=== PATIENT | male | born 1990 | race Caucasian/White ===

== ENCOUNTER 2025-06-18 12:57 | Emergency (ER) | payer OTHER, SELFPAY ==
[2025-06-18 12:59] VITALS: BP 141/105
[2025-06-18 14:19] VITALS: BMI 27.1
[2025-06-18 14:26] VITALS: BP 145/105
[2025-06-18 14:40] LABS: Hematocrit 47.9 % (39.0-52.0); Hemoglobin 17.1 g/dL (13.0-18.0); Mean Corp Hgb Conc. 35.7 g/dL (33.0-37.0); Mean Corpuscular Volume 82.4 fL (80.0-94.0); Nucleated Red Blood Cells % 0 % (-); Platelet Count 266 10^3/uL (130-400); Red Cell Dist. Width 12.4 % (11.5-14.5)
--- NOTE | 2025-06-18 14:54 | ED.GENMED ---
History of Present Illness
General
Chief Complaint: Dizziness
Source: patient and family (mother)
Exam Limitations: none
Time Seen by Provider: 06/18/25 14:41
Nursing documentation reviewed up to this point in time: agreed with
History of Present Illness
History of Present Illness:
Patient states he sustained a concusion in Nov after slip and fall on ice. Since then her reports headaches and nausea. He was seen by neurologist on Thursday. Given rx for zofran and effexor. He started taking zofran on Thursday without
inprovement. he started effexor. On thursday he developed abdominal pain and diarrhea, severe headaches. Took zofran and effexor thursday but has not taken since. able to eat toast and muffin this AM but overall poor appetite. Reports
weakness and neck pain. Brought to ED by mother for eval. Denies fever/chills, skin rash.
Past History
Past History
ED Past Medical History: Other (concussion)
Review of Systems
Review of Systems
Allergies reviewed?: Yes
All Other Systems: ROS reviewed and negative except as documented in HPI and ROS
Constitutional: Reports fatigue
EENT: Reports no symptoms
Respiratory: Reports no symptoms
Cardiac: Reports no symptoms
ABD/GI: Reports abdominal pain, nausea, diarrhea and anorexia
: Reports no symptoms
Musculoskeletal: Reports neck pain
Skin: Reports no symptoms
Neurological: Reports dizzy and headache
Psychiatric: Reports no symptoms
Phy Exam
General Physical Exam
General Presentation: well appearing and mild distress
General age: appears stated age
General Skin: warm and dry
General Habitus: normal
General Mental: alert
Cardiovascular Exam
Cardiovascular Exam: regular rate/rhythm and no edema
Pulmonary Exam
Pulmonary Exam: lungs clear and no respiratory distress
Gastrointestinal Exam
Gastrointestinal Exam: normal bowel sounds, soft, no organomegaly, no pulsatile mass, non distended and no cva tenderness
Palpation: left upper quadrant: Moderate tenderness and right upper quadrant: Moderate tenderness
Neurological Exam
Neurological Exam: alert, oriented x3, CN II-XII intact, no motor deficits, no sensory deficits and speech normal
Rodríguez Coma Scale
Eye Opening: Spontaneous
Verbal Response: Oriented
Motor Response: Obeys Commands
GCS Total Score: 15
Musculoskeletal Exam
Musculoskeletal Exam: full ROM and neuro vasc intact
Skin Exam
Skin Exam: normal color, warm/dry and no rash
Psychiatric Exam
Psychiatric Exam: normal mood/affect
Course
Orders/Labs/Results
Orders:
Orders
06/18/25 14:30
Complete Blood Count/With Diff Urgent
Comprehensive Metabolic Panel Urgent
Lipase Urgent
Comment: ADD ON
06/18/25 14:52
Add On- LAB Urgent
Tests Added?: lipase
Abdomen/Pelvis w Contrast CT [CT Abd/pelvis W Iv Cont] Stat
Comment:
Reason For Exam: diffuse, pain diarrhea
CT Head W/o Iv Contrast Urgent
Comment:
Reason For Exam: severe headache
STOOL [C difficile Antigen & Toxins] Urgent
ANAY Source: Feces/Stool
Specimen Description:
Stool Culture Urgent
ANAY Source: Feces/Stool
Specimen Description:
0.9% Sodium Chloride 1000 ml [Nss] 1,000 ml IV BOLUS
06/18/25 14:54
0.9% Sodium Chloride 1000 ml [Nss] 1,000 ml IV BOLUS
Prochlorperazine [Compazine] 10 mg IV NOW STA
06/18/25 15:02
COVID-19 Antigen Urgent
Source: Nasal Swab
Influenza A+B Rapid Molecular Urgent
ANAY Source: Nasal Swab
Specimen Description:
Abnormal Lab Results
06/18/25
14:30
Abs Immat Gran (auto) 0.1 H 10^3/uL
(0-0.05)
Absolute Monos (auto) 1.3 H 10^3/uL
(0.1-0.6)
Monocytes % 14.2 H %
(1.7-9.3)
BUN 7 L mg/dl
(9-20)
06/18/25 14:30
06/18/25 14:30
Vital Signs
Initial and Last Documented VS:
Initial Vital Signs
Temp Pulse Resp BP Pulse Ox
98.5 F 86 16 141/105 97
06/18/25 12:59 06/18/25 12:59 06/18/25 12:59 06/18/25 12:59 06/18/25 12:59
Last Documented Vital Signs
Temp Pulse Resp BP Pulse Ox
98.5 F 80 10 141/102 98
06/18/25 12:59 06/18/25 17:00 06/18/25 17:00 06/18/25 16:00 06/18/25 16:00
*Radiology
Radiology exam reviewed: radiology read reviewed
*Pulse Oximetry
SaO2: 97
Oxygen Mode of Delivery: Room air
Patient hypoxic: no
*Critical Care Note
Total Time (30-74mins, 75-104mins- exclusive of procedures): Not Applicable
Update Note
Update Note:
Labs reviewed, no concerning findings. VSS, he remains afebrile. No episodes of diarrhea while in ED. CT head without acute findings, CT abd. confirms colitis. Discussed findings with patient and mother. Recommend immodium prn. WIll hold off
on antibiotics as he remains afebrile, CBC normal. He will continue to hydrate at home, close follow upw ith PCP. Given instructions on s/s to return to ED and he is agreeable to plan.
ED Attending Note
-
Portions of this chart may have been created with voice recognition software.� Occasional wrong word or��sound alike� substitutions may have occurred due to the inherent limitations of voice recognition software.
Discharge Plan
Departure
Patient Disposition: Home (Routine Discharge)
Date of Disposition: 06/18/25
Time of Disposition: 18:54
Patient with high blood pressure during this ER visit?: No
Condition: Good
Covid-19: Not Applicable
Discharge Problem:
Colitis
Instructions: Colitis (DC), Clear liquid diet
Referrals:
UNKNOWN - PT DOES,NOT KNOW [Family Provider]
Activity Restrictions/Additional Instructions:
FOllow up with your domestic housekeeper this week. Increase your fluid intake, Return to the emergency department immediately for any changes in/worsening of your symptoms
Interventions
Interventions:
*Risk Screen - Suicide Last Done: 06/18/25 12:59
*General Assessment Last Done: 06/18/25 14:19
*Neglect/Abuse Screening Last Done: 06/18/25 12:59
*ED- Fall Risk Assessment Last Done: 06/18/25 14:19
*ED COVID-19 Vaccine History Last Done: 06/18/25 14:19
ED- Neurological Assessment Last Done: 06/18/25 15:13
ED- Cardiac Assessment Last Done: 06/18/25 15:13
Discharge Date and Time
Print Language: [id number]
[2025-06-18 15:00] VITALS: BP 136/102
[2025-06-18 15:00] LABS: ALT (SGPT) 33 U/L (0-50); AST (SGOT) 23 U/L (17-59); Albumin 4.7 g/dl (3.5-5.0); Alkaline Phosphatase 78 U/L (38-126); Blood Urea Nitrogen 7 mg/dl (9-20); Calcium 9.5 mg/dl (8.4-10.2); Carbon Dioxide 23 mmol/L (22-30); Chloride 105 mmol/L (98-107); Estimated Creatinine Clearance > 125 ml/min; Glucose 84 mg/dl (70-99); Potassium 4.3 mmol/L (3.5-5.1); Sodium 137 mmol/L (135-145); Total Protein 7.6 g/dl (6.3-8.2); eGFR > 60.00
[2025-06-18] MEDS: NSS 1000 IV (15:05)
[2025-06-18] MEDS: COMPAZINE 10 MG IV (15:05)
[2025-06-18 15:31] LABS: COVID-19 Antigen Negative (Negative)
[2025-06-18 16:00] VITALS: BP 141/102
[2025-06-18 16:12] LABS: Lipase 71 U/L (23-300)
== END 2025-06-18 19:06 | disposition home or self-care (01) ==
LOC: EMR 12:57
PROVIDERS: Emergency Medicine; Nurse Practitioner; EMERGENCY PHYSICIAN Emergency Medicine
DX: K52.9 Noninfective gastroenteritis and colitis, unspecified (principal); Z87.820 Personal history of traumatic brain injury
CPT/HCPCS: 99284; 96374; 96361; 70450; 74177; 80053; 83690; 85025; 87502; 87811; Q9967